=== PATIENT | female | born 2005 | race Caucasian/White ===

== ENCOUNTER 2024-10-27 12:09 | Emergency (ER) | payer BC, SELFPAY ==
[2024-10-27 12:19] VITALS: BP 114/77; PULSE 89; RESP 18; TEMP 37.6; O2SAT 99; BMI 21.0
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
== END 2024-10-27 13:40 | disposition home or self-care (01) ==
PROVIDERS: Emergency Provider Emergency Medicine Emergency Medical Services
DX: M54.50 Low back pain, unspecified (principal); V43.52XA Car driver injured in collision with other type car in traffic accident, initial encounter
CPT/HCPCS: 99283; 99284

== ENCOUNTER 2025-02-18 16:09 | Emergency (ER) | payer BC, SELFPAY ==
[2025-02-18 16:27] VITALS: BP 112/78; PULSE 81; RESP 18; TEMP 36.8; O2SAT 98; BMI 23.6
--- NOTE | 2025-02-18 17:01 | CRLHL7_ITS ---
For Patients: As a result of the Century Cures Act, medical imaging exams and procedure reports are released immediately into your electronic medical record. You may view this report before your referring provider. If you have questions, please contact your health care provider. INDICATION: Elevated liver enzymes bilirubin.. TECHNIQUE: CT abdomen and pelvis acquired with 76 cc Isovue 370 IV contrast. COMPARISON: None. FINDINGS: Lower chest: Unremarkable. Liver: Unremarkable. Normal in size and attenuation. No suspicious masses. Gallbladder and bile ducts: Unremarkable. No stones or inflammation. No biliary dilatation. Pancreas: Unremarkable. No mass or inflammation. Spleen: Borderline enlarged spleen. Adrenal glands: Unremarkable. No nodules. Kidneys: Unremarkable. No suspicious masses, stones, or hydronephrosis. GI tract: No bowel obstruction. Appendix is not visualized. Vasculature: Abdominal aorta is normal in caliber. Mesenteric arteries are patent. Lymph nodes: Diffuse mesenteric and upper abdominal lymphadenopathy. Peritoneum/Abdominal Wall: Unremarkable. No sign of mass or infiltration. No free air or significant free fluid. Pelvis: Probable corpus luteal cyst the right adnexa. IUD noted within the uterus. Bladder is unremarkable. Bones: Unremarkable for age. IMPRESSION: Prominent spleen with mesenteric and upper abdominal lymphadenopathy. In light of the elevated liver enzymes and bilirubin, the findings are suspicious for atypical infectious causes such as EBV, CMV or other lymphoproliferative disease. Please note that all CT scans at this facility use dose modulation, iterative reconstruction, and/or weight-based dosing when appropriate to reduce radiation dose to as low as reasonably achievable. Dictated by Fabián Gauthier MD @ 02/18/2025 7:51:46 PM (Electronically Signed)
--- NOTE | 2025-02-18 17:02 | ED.GENADULT ---
HPI - General Adult General Chief complaint: Unspecified Complaint, Adult Stated complaint: Urgent care sent for high Billirubin Time Seen by Provider: 02/18/25 16:13 History of Present Illness HPI narrative: This 19-year-old female comes in from urgent care because of elevated liver enzymes and bilirubin. The patient states that she began to feel some mild diffuse abdominal pain about a week ago. This was as [place] was [place] to [place] to [place]. Her symptoms have persisted since then and she has noticed that her skin appears more yellow. She denies using any alcohol and does not take any medications. She did have a few Tylenol tablets but nothing in excess. She states that she is otherwise in good health. She states that her symptoms seem to be worse when taking food. She reports intermittent dull diffuse pain in her abdomen it seems to be more located across her lower abdomen. Related Data Home Medications ?Medication ?Instructions ?Recorded ?Confirmed levonorgestrel (Mirena) 1 device intrauterine ONCE 08/16/24 02/18/25 hydroxyzine HCl 10/27/24 02/18/25 Previous Rx's ?Medication ?Instructions ?Recorded sumatriptan succinate 25 mg tablet See Rx Instructions PO .COMPLEX 02/18/25 #30 tabs Allergies Allergy/AdvReac Type Severity Reaction Status Date / Time No Known Drug Allergies Allergy Verified 02/18/25 16:32 Review of Systems Status of ROS: Reports: 10 or more systems reviewed and unremarkable except as noted in History and below Narrative: Constitutional: No fevers, no weight gain or loss. Eyes: No discharge. No vision changes. HENT: No congestion, no sore throat, no ear pain. Cardiovascular: No chest pain, no palpitations. Respiratory: No shortness of breath, no wheezes, no cough. Gastrointestinal: Diffuse abdominal pain as described above. Nausea but no vomiting. Genitourinary: No dysuria, no hematuria. Musculoskeletal: Normal range of motion. Skin: No rashes. She reports jaundice. Neurological: No dizziness, weakness, sensory change, speech change. Endo/Heme/Allergies: No bruising or bleeding. No polydipsia. Pysch: no suicidality, no anxiety, no insomnia. All other systems reviewed and are negative. PFS PFS Social History Smoking Status: Never smoker Do you use any of these nicotine containing products: None How often do you have a drink containing alcohol: monthly or less AUDIT-C Alcohol total score: 1 Non-prescribed substance use: marijuana (any form) Exam Narrative: Exam Narrative: Constitutional: Well-developed, well-nourished, no acute distress. HEENT: Normocephalic, atraumatic. Neck: Normal range of motion. Nontender. Supple. Heart: Regular. No murmurs. Normal rate. Intact distal pulses. Lungs: Clear to auscultation. No chest discomfort. No wheezes, rhonchi, or rales. Abdomen: Normal bowel sounds. Mild tenderness in the lower abdomen. No rebound tenderness. Genitalia: Deferred. Back: No midline tenderness. Normal range of motion. Extremities: Normal range of motion. No injury. Skin: Intact. No rash. Warm. No erythema or pallor. Diffuse mild jaundice. Neurologic: No altered sensation. No weakness. Alert and oriented. Psychiatric: No suicidality. No anxiety or depression. No insomnia. Nursing notes and vitals signs are reviewed. Const: Vital Signs, click to edit/add: Vital Signs - 24 hr 02/18/25 16:27 02/18/25 20:08 02/18/25 22:08 Temperature 98.2 F Pulse Rate [Pulse Oximeter] 81 76 82 Respiratory Rate 18 16 16 Blood Pressure [Ri t Upper Arm] 112/78 113/73 117/82 Pulse Oximetry 98 98 98 Oxygen Delivery Me thod Room Air Room Air Room Air Course Vital Signs Vital signs: Initial Vital Signs Temperature 98.2 F 02/18/25 16:27 Temperature Source Temporal Artery Scan 02/18/25 16:27 Pulse Rate 81 02/18/25 16:27 Pulse Rhythm Regular 02/18/25 16:27 Pulse Strength 3+ Normal 02/18/25 16:27 Respiratory Rate 18 02/18/25 16:27 Blood Pressure 112/78 02/18/25 16:27 Blood Pressure Mean 89 02/18/25 16:27 Blood Pressure Position Sitting 02/18/25 16:27 Pulse Oximetry 98 02/18/25 16:27 Oxygen Delivery Method Room Air 02/18/25 16:27 Vital Signs Temperature 98.2 F 02/18/25 16:27 Pulse Rate 81 02/18/25 16:27 Respiratory Rate 18 02/18/25 16:27 Blood Pressure 112/78 02/18/25 16:27 Pulse Oximetry 98 02/18/25 16:27 Oxygen Delivery Method Room Air 02/18/25 16:27 Temperature 98.2 F 02/18/25 16:27 Pulse Rate 82 02/18/25 22:08 Respiratory Rate 16 02/18/25 22:08 Blood Pressure 117/82 02/18/25 22:08 Pulse Oximetry 98 02/18/25 22:08 Oxygen Delivery Method Room Air 02/18/25 22:08 Medical Decision Making MDM Narrative Medical decision making narrative: This patient comes in reporting jaundice appearance and was noted in urgent care visit to have elevated liver enzymes and bilirubin. She does report some mild occasions of abdominal pain but otherwise is not having any other symptoms. She does not use any alcohol and is not on any prescription medications. She states that she has had 1 or 2 tablets of Tylenol in the last week or 2. She does not have any pain in her right upper quadrant. I did use bedside ultrasound to examine her liver and gallbladder and saw contracted gallbladder but no sign of stones or obstruction. I did also observe her common bile duct which appeared normal by my review. I then recommended CT scan of her abdomen and pelvis with IV contrast. An IV was placed and labs are acquired. Her labs returned with reassuring results except of course her liver enzymes are markedly elevated in the 5-700 range and her bilirubin also elevated. Her alkaline phosphatase is mildly elevated but her lactate, lipase, protein, and INR are all in normal range. I did consult with a GI specialist at [facility], Dr. Moore, who stated that this sounded like autoimmune hepatitis. He recommended admission here and draw labs for antinuclear antibody and arrange for an MR scan or Doppler ultrasound to evaluate her liver. I did speak with our hospitalist here who stated that these tests will not come back for about a week and for that reason it is better to be transferred where such results can be expedited. I then spoke with the hospitalist on-call at [facility], Dr. Sneed, who agrees to her transfer there. There is up to an 8 hour wait for this to occur. I did speak by phone with the patient's parents to explain all of this. They are preferring that her brother could transfer her there by private vehicle if possible. I stated that should be okay as long is her vital signs and condition remains stable as it is currently. Lab Data Labs: Lab Results 02/18/25 Range/Units 17:11 WBC 10.20 (4.50-11.00) K/uL RBC 3.59 L (4.00-5.20) m/uL Hgb 11.1 L (12.0-16.0) gm/dL Hct 32.8 L (33.0-51.0) % MCV 91 (80-100) fL MCH 31 (26-34) pg MCHC 34 (32-36) gm/dL RDW Coeff of Yusra 12.7 (11.5-15.5) % Plt Count 157 (140-440) K/uL Neut % (Auto) 14.8 L (42.0-72.0) % Lymph % (Auto) 80.4 H (20-44) % Canadian % (Auto) 3.8 (0.0-11.0) % Eos % (Auto) 0.1 (0.0-7.0) % Baso % (Auto) 0.2 (0.0-3.0) % Neut # (Auto) 1.50 L (1.7-7.0) K/uL Lymph # (Auto) 8.20 H (0.90-2.90) K/uL Canadian # (Auto) 0.40 (0.00-0.90) K/UL Eos # (Auto) 0.01 (0.00-0.50) K/uL Baso # (Auto) 0.02 (0.00-0.30) K/uL Abs Immat Gran (auto) 0.07 (0.00-0.30) K/uL Imm/Tot Granulo (auto) 0.7 % Diff Slide Review Acceptable Review (Acceptable) INR 1.09 (0.91-1.10) Sodium 137 (135-149) mmol/L Potassium 3.5 L (3.6-5.1) mmol/L Chloride 103 (96-114) mmol/L Carbon Dioxide 27 (20-32) mmol/L Anion Gap 7 (7-15) mEq/L BUN 8 (5-24) mg/dL Creatinine 0.8 (0.5-1.5) mg/dL Estimated Creat Clear 113.16 Estimated GFR 108 ml/min Glucose 103 (60-115) mg/dL Lactate 1.0 (0.5-1.9) mmol/L Calcium 9.2 (8.4-10.6) mg/dL Total Bilirubin 4.2 H (0.1-1.5) mg/dL Direct Bilirubin 3.4 H (0.0-0.5) mg/dL AST 568 H (12-35) U/L ALT 735 H (4-35) U/L Alkaline Phosphatase 271 H (40-150) U/L Total Protein 7.1 (6.0-8.3) g/dL Albumin 3.8 (3.3-5.0) g/dL Lipase 69 (23-300) U/L HCG, Qual Negative (Negative) Imaging Data CT scan - abdomen: Radiologist's impression: Prominent spleen with mesenteric and upper abdominal lymphadenopathy. In light of the elevated liver enzymes and bilirubin, the findings are suspicious for atypical infectious causes such as EBV, CMV or other lymphoproliferative disease. Discharge Plan Discharge Clinical Impression: Autoimmune hepatitis, Jaundice Patient Disposition: [facility] Condition: Unchanged Prescriptions: No Action sumatriptan succinate 25 mg tablet See Rx Instructions PO .COMPLEX Qty: 30 0RF Rx Instructions: take 1 tab at onset of headache; if no relief may repeat 1 tab after at least 2 hrs; max = 4 tabs/24 hr PO Mirena 21 mcg/24hr (up to 8 yrs) 52 mg intrauterine device 1 device intrauterine ONCE Rx Instructions: as a single dose hydroxyzine HCl Stand Alone Forms: [facility] Info Instructions Procedures POC Ultrasound Abdomen Limited Anatomical areas examined: Liver and gallbladder. Indications: Elevated liver enzymes and elevated bilirubin. Description/ Findings: Normal appearing liver and gallbladder with no signs of stone or obstruction. Impression: Negative exam.
[2025-02-18 17:23] LABS: Lactate* 1.0 mmol/L (0.5-1.9)
[2025-02-18 17:35] LABS: Hematocrit 32.8 % (33.0-51.0); Hemoglobin* 11.1 gm/dL (12.0-16.0); Immature Granulocytes Abs Auto 0.07 K/uL (0.00-0.30); Immature Granulocytes Pct Auto 0.7 %; Lymphocytes Absolute Auto 8.20 K/uL (0.90-2.90); Mean Corpuscular HGB Conc 34 gm/dL (32-36); Mean Corpuscular Hemoglobin 31 pg (26-34); Mean Corpuscular Volume 91 fL (80-100); RDW Coefficient of Variation % 12.7 % (11.5-15.5); Red Blood Count 3.59 m/uL (4.00-5.20); White Blood Count* 10.20 K/uL (4.50-11.00)
[2025-02-18 17:41] LABS: Albumin* 3.8 g/dL (3.3-5.0); Chloride* 103 mmol/L (96-114)
[2025-02-18 17:42] LABS: Potassium* 3.5 mmol/L (3.6-5.1); Sodium* 137 mmol/L (135-149)
[2025-02-18 17:43] LABS: INR 1.09 (0.91-1.10); Prothrombin Time 14.9 Seconds
[2025-02-18 17:44] LABS: Alanine Aminotransferase* 735 U/L (4-35); Anion Gap 7 mEq/L (7-15); Aspartate Amino Transferase* 568 U/L (12-35); Blood Urea Nitrogen* 8 mg/dL (5-24); Carbon Dioxide* 27 mmol/L (20-32); Creatinine* 0.8 mg/dL (0.5-1.5); Est. Creatinine Clearance* 113.16; Estimated Glomerular Filt Rate 108 ml/min; Total Protein* 7.1 g/dL (6.0-8.3)
[2025-02-18 17:45] LABS: Alkaline Phosphatase* 271 U/L (40-150); Bilirubin Direct* 3.4 mg/dL (0.0-0.5); Bilirubin Total* 4.2 mg/dL (0.1-1.5); Calcium* 9.2 mg/dL (8.4-10.6); Glucose* 103 mg/dL (60-115)
[2025-02-18 18:01] LABS: Slide Review Reflex Yes
[2025-02-18 18:31] LABS: Slide Review Acceptable Review (Acceptable)
[2025-02-18 18:33] LABS: HCG Qualitative Serum* Negative (Negative)
[2025-02-18 20:08] VITALS: BP 113/73; PULSE 76; RESP 16; O2SAT 98
[2025-02-18 22:08] VITALS: BP 117/82; PULSE 82; RESP 16; O2SAT 98
[2025-02-18 22:51] VITALS: TEMP 36.5
[2025-02-19 01:00] VITALS: BP 122/67; PULSE 86; RESP 16; TEMP 36.6; O2SAT 95
[2025-02-20 11:33] LABS: Hep B Surface Antigen Negative (Negative); Hep C Ab by CIA Interp Negative (Negative)
== END 2025-02-19 01:47 | disposition short-term general hospital (02) ==
PROVIDERS: Emergency Provider Emergency Medicine Emergency Medical Services
DX: K75.4 Autoimmune hepatitis (principal)
CPT/HCPCS: 36415; 74177; 76705; 80048; 80074; 80076; 83605; 83690; 84703; 85025; 85610; 99285; Q9967

== ENCOUNTER 2025-02-28 14:51 | Outpatient (CLI) | payer BC, SELFPAY | END 2025-02-28 14:52 | disposition home or self-care (01) | LOC: NFLDREF 14:52 | PROVIDERS: Visit Provider Internal Medicine | DX: K75.9 Inflammatory liver disease, unspecified (principal) | CPT/HCPCS: 80053 ==

== ENCOUNTER 2025-04-03 14:35 | Outpatient (CLI) | payer BC, SELFPAY | END 2025-04-03 14:36 | disposition home or self-care (01) | LOC: NFLDREF 04-08 08:04 | PROVIDERS: PCP Internal Medicine; Visit Provider Internal Medicine | DX: K75.9 Inflammatory liver disease, unspecified (principal) | CPT/HCPCS: 80053 ==